=== PATIENT | female | born 1980 | race Caucasian/White ===

== ENCOUNTER 2023-08-14 09:25 | Outpatient (CLI) | payer BC, SELFPAY ==
--- NOTE | ~2023-08-14 | CT_ITS ---
EXAMINATION: CT abdomen pelvis w con DATE: 08/14/2023 09:51 INDICATION: Right lower quadrant abdominal pain TECHNIQUE: Computed tomography (CT) of the abdomen and pelvis was performed with 100 mL Omnipaque-350 intravenous contrast. Automated exposure control and iterative reconstruction technique were employe d. The dose-length product was 424.82 mGy-cm. COMPARISON: None FINDINGS: Lung bases are clear. Heart size normal. No pericardial or pleural effusion. Small region of focal he patic steatosis along the ligamentum teres. Gallbladder, spleen, pancreas, bilateral adrenal glands a nd kidneys are normal. Bowels including the appendix are normal. T-shaped IUD in expected position wi thin the endometrial canal of the normal anteverted uterus. Small bilateral ovarian follicles. Bladde r is normal. No free intraperitoneal gas or fluid. No pathologically enlarged abdominal or pelvic lym phadenopathy. Small fat-containing umbilical hernia. Severe disc height loss at L5-S1. Otherwise mild lumbar and moderate lower thoracic spondylosis. IMPRESSION: 1. Normal gallbladder and appendix. No acute intra-abdominal/pelvic process. 2. IUD in expected position. Reviewed, dictated and finalized at location A.
== END 2023-08-14 09:26 | disposition home or self-care (01) ==
PROVIDERS: PCP Nurse Practitioner Family; Visit Provider Family Medicine
DX: R10.31 Right lower quadrant pain (principal); Z97.5 Presence of (intrauterine) contraceptive device
CPT/HCPCS: 74177; Q9967

== ENCOUNTER 2025-07-13 15:58 | Emergency (ER) | payer BC, SELFPAY ==
[2025-07-13 16:06] VITALS: BP 129/88; PULSE 92; RESP 18; TEMP 36.4; O2SAT 100
--- NOTE | 2025-07-13 16:22 | ED.URI ---
HPI - URI/Sore Throat General Chief Complaint: Upper Respiratory Infection Stated Complaint: COLD SYMPTOMS/ASTHMA/EAR CLOGGED Time Seen by Provider: 07/13/25 16:15 Source: patient and RN notes reviewed Mode of arrival: ambulatory Limitations: no limitations History of Present Illness HPI Narrative: 45-year-old female presents Express Care complaining of upper respiratory symptoms for over a week. Patient reports sinus congestion, cough, mucopurulent nasal drainage. Patient says the last couple days her sinus congestion and drainage is gotten a lot worse. Patient denies any fevers, bites, chills, nausea vomiting, diarrhea, abdominal pain, chest pain, shortness of breath, or any other symptoms. Related Data Home Medications ?Medication ?Instructions ?Recorded ?Confirmed ?Last Taken ?Type albuterol sulfate 90 mcg/actuation 1 puff inhalation Q4H PRN 10/30/22 04/19/25 Unknown History aerosol inhaler (ProAir HFA) budesonide-formoterol HFA 80 2 puff inhalation Q12H 10/30/22 04/19/25 Unknown History mcg-4.5 mcg/actuation aerosol inhaler (Symbicort) levonorgestrel (Mirena) 1 device intrauterine ONCE 08/14/23 04/19/25 Unknown History sertraline 50 mg tablet 50 mg PO DAILY 01/19/25 04/19/25 Unknown History Allergies Allergy/AdvReac Type Severity Reaction Status Date / Time No Known Allergies Allergy Mild Unverified 07/13/25 16:11 Review of Systems Review of Systems: CONSTITUTIONAL: Denies fever, chills, body aches, or sweats. EYES: Denies visual changes, redness, or discharge. ENT: Positive for congestion, sore throat. Negative for rhinorrhea or otalgia. CARDIOVASCULAR: Denies chest pain, palpitations, or edema. RESPIRATORY: Positive for cough. Negative for dyspnea. GASTROINTESTINAL: Denies abdominal pain, nausea, vomiting, or diarrhea. GENITOURINARY: Denies dysuria or hematuria. SKIN: Denies rash or itching. MUSCULOSKELETAL: Denies back pain, joint pain, or myalgia. NEUROLOGIC: Denies headache, numbness, or weakness. PSYCHIATRIC: Denies anxiety or depression. All other systems reviewed are negative, except as documented in HPI. [facility] Past Medical History Medical History Abdominal pain Right lower quadrant pain Sore throat Asthma Surgical History Surgical History No history of previous surgery Family History Family History Sibling Asthma Mother No problems noted. Father No problems noted. Grandparent Hypertension Heart disease Acute myocardial infarction Social History Social History Social History: 06/21/24 Patient is very confident in filling out medical forms. Patient has not rcvd assistance in the past 12 months. 01/19/25 declined SDOH Smoking status: Never smoker Alcohol intake: current Alcohol use details: occasional Substance use: never Substance use type: does not use Do You Feel Safe in your Home?: Yes Lack of Transportation: No Lack of Food: Never True Current Housing: I Have Housing Concerned About Future Housing: No Difficulty Paying Gas/Electric Bills: No Difficulty Paying for Meds: No Currently Unemployed: No Education: Master's Degree or Higher Difficulty w/ Childcare or Family Care: No Living arrangements: with family Occupation/Education: occupation Gender identity (if verbalized by the patient): Female Sexual Orientation (if Verbalized by the Patient): Straight or Heterosexual Comments At the time of my signature, I reviewed and agree with the nursing past medical, surgical, social, and family history. There is no relevant family history pertinent to the patient complaint. Exam Narrative: GENERAL: This is a well-nourished, well-developed adult, in no apparent distress. They are non ill-appearing, nontoxic appearing. HEAD: normocephalic, atraumatic. EYES: Sclera clear/white. Vision is grossly intact. Conjunctiva normal bilaterally. Extraocular movements intact. EARS: External ears normal, auditory canals clear and without drainage, TMs without erythema or perforation. Hearing grossly intact. NOSE: External nose normal with no obvious nasal discharge, nasal turbinates erythematous, no rhinorrhea. Maxillary sinus tenderness to palpation. THROAT: Mucous membranes moist, posterior pharynx erythematous without exudate. Uvula is midline. Postnasal drip present. NECK: Neck supple, non-tender without lymphadenopathy, masses or thyromegaly. CARDIOVASCULAR: Regular rate and rhythm without murmurs, gallops, or rubs. RESPIRATORY: Clear to auscultation. Breath sounds equal bilaterally. No wheezes, rales, or rhonchi. SKIN: warm, Dry, intact with no suspicious lesions or rash, good texture and turgor. NEURO: awake, alert, and oriented to person, place and time. There were no obvious focal neurologic abnormalities. EXTREMITIES: No joint tenderness, effusion, or edema noted. BACK: Nontender without deformity. Course Course Emergency Course: Portions of this record may have been created with voice recognition software Level of Care: Express Care Visit Vital Signs Vital signs: Vital Signs Temperature 97.6 F 07/13/25 16:06 Pulse Rate 92 07/13/25 16:06 Respiratory Rate 18 07/13/25 16:06 Blood Pressure 129/88 07/13/25 16:06 Pulse Oximetry 100 07/13/25 16:06 Oxygen Delivery Room Air 07/13/25 16:06 Temperature 97.6 F 07/13/25 16:06 Pulse Rate 92 07/13/25 16:06 Respiratory Rate 18 07/13/25 16:06 Blood Pressure 129/88 07/13/25 16:06 Pulse Oximetry 100 07/13/25 16:06 Oxygen Delivery Room Air 07/13/25 16:06 MDM - URI/Sore Throat MDM Narrative Medical decision making narrative: Given length of symptoms patient likely has bacterial sinusitis. Will prescribe Augmentin. Discussed physical exam findings. Advised supportive measures and signs/symptoms to go to the ER. Pt is appropriate for outpt treatment and f/u. Differential Diagnosis Differential diagnosis: Likely upper respiratory infection, sinusitis and viral infection Discharge Plan Discharge Clinical Impression: Sinusitis Patient Disposition: Home Condition: Stable Instructions: Antibiotic Form, Sinusitis (ED) Additional Instructions: Take the antibiotics as directed and complete the course even if you start to feel better. You may use a Neti pot saline rinse 3 times a day with lukewarm distilled water Continue to take Tylenol or Motrin for pain. Follow instructions on the bottle. Use a humidifier or vaporizer at night. Drink plenty of water. 8-10 glasses per day. Use flonase 2 times per day for 5 days then as needed Take mucinex 2 times per day and be sure to take with 8oz of water. Follow up with Primary provider in 3-5 days Please go to the ER if he develops any difficulty breathing, worsening symptoms, or any other concerns Patient Language: Luxembourgish Prescriptions: New amoxicillin-pot clavulanate 875-125 mg tablet 1 tablet PO Q12H 7 Days Qty: 14 0RF No Action albuterol sulfate [ProAir HFA] 90 mcg/actuation HFA aerosol inhaler 1 puff inhalation Q4H PRN budesonide-formoterol [Symbicort] 80-4.5 mcg/actuation HFA aerosol inhaler 2 puff inhalation Q12H Mirena 21 mcg/24 hours (8 yrs) 52 mg intrauterine device 1 device intrauterine ONCE Rx Instructions: as a single dose sertraline 50 mg tablet 50 mg PO DAILY Follow-up/Referrals: Ilda Todd PA-C [Primary Care Provider, [facility]] Time of Disposition: 16:22
== END 2025-07-13 16:26 | disposition home or self-care (01) ==
PROVIDERS: PCP Physician Assistant Medical
DX: J32.9 Chronic sinusitis, unspecified (principal); J45.909 Unspecified asthma, uncomplicated
CPT/HCPCS: 99213; G0463